=== PATIENT | male | born 1995 | race Caucasian/White ===

== ENCOUNTER 2022-03-03 12:59 | Emergency (ER) | payer BC, SELFPAY ==
--- NOTE | ~2022-03-03 | XR_ITS ---
EXAMINATION: XR chest 2V DATE: 03/03/2022 13:27 INDICATION: Chest pain. Cough. TECHNIQUE: Frontal and lateral views of the chest were obtained. COMPARISON: Chest 2 views 04/02/2018 FINDINGS: The chest demonstrates clear lungs without pneumonia, pleural effusion, or pneumothorax. Th e heart size is normal. IMPRESSION: 1. No acute cardiopulmonary disease. Reviewed, dictated and finalized at location E.
[2022-03-03 13:14] VITALS: BP 158/87; PULSE 107; RESP 16; TEMP 37.1; O2SAT 100
--- NOTE | 2022-03-03 13:39 | ED.GENADULT ---
HPI - General Adult General Chief complaint: Upper Respiratory Infection Stated complaint: chest/rib pain Source: patient Mode of arrival: ambulatory Limitations: no limitations History of Present Illness HPI narrative: Patient presents for evaluation of right-sided chest pain. She indicates she has chronic left sided back pain and chest pain for the last 5 years. She states the pain is there on a daily basis and is a dull pressure, rated 3 out of 10 in severity. Yesterday she was smoking some marijuana and noted some air bubbles under the skin on the right side of her chest wall after coughing. She had pain in the areas with air bubbles were. Pain was rated 6/10 in severity. Air bubbles are no longer visible. Pain has improved. She did some online research and was concerned about potential pneumothorax. She smokes about 0.5 ppd and marijuana daily. She is MTF transgender, currently on estrogen based HRT. No personal hx of DVT or PE. No leg swelling. Patient has some chronic SOB that has been present for the past five years. Currently symptoms are not worse than baseline. Related Data Home Medications Medication Instructions Recorded Confirmed cariprazine [Vraylar] mg 03/03/22 estradiol valerate mg IM 03/03/22 lisdexamfetamine [Vyvanse] mg 03/03/22 sertraline mg 03/03/22 spironolactone 03/03/22 Allergies Allergy/AdvReac Type Severity Reaction Status Date / Time clavulanic acid Allergy Mild Unknown Verified 04/02/18 09:35 amoxicillin Allergy Unknown rash Verified 12/06/17 21:20 Review of Systems Review of Systems: CONSTITUTIONAL: Denies fever, chills, or sweats. EYES: Denies visual changes, redness, or discharge. ENT: Denies rhinorrhea, congestion, sore throat, or otalgia. CARDIOVASCULAR: Denies chest pain, palpitations, or edema. RESPIRATORY:Reports chronic SOB, not worse from baseline. Reports occasional cough GASTROINTESTINAL: Denies abdominal pain, nausea, vomiting, or diarrhea. GENITOURINARY: Denies dysuria or hematuria. SKIN: Denies rash or itching. MUSCULOSKELETAL: Denies back pain, joint pain, or myalgia. NEUROLOGIC: Denies headache, numbness, dizziness, or weakness. PSYCHIATRIC: Reports chronic anxiety. Denies depression. [facility] Past Medical History Medical History (Updated 04/02/22 @ 14:09 by Christiano Ernst [facility], ) Anxiety Depression Surgical History Surgical History No pertinent past surgical history Family History Family History Mother No pertinent past medical history Social History Social History Smoking packs per day: 0.5 Smoking cigarettes per day: 10.0 Smoking status: Current every day smoker Substance use: current Substance use type: marijuana Living arrangements: with family Gender identity (if verbalized by the patient): Female Spiritual care concerns: No Exam Narrative: GENERAL: Well-appearing, well-nourished, and in no acute distress. HEAD: Normocephalic, atraumatic. EYES: PERRLA and EOMI. ENT: Nares clear, no rhinorrhea or epistaxis. Mucous membranes moist. Oropharynx without tonsillar hypertrophy exudate or other lesions. Bilateral TMs pearly caldera nonbulging NECK: Supple. No adenopathy or masses. No carotid bruits or JVD CHEST: Clear to auscultation. No respiratory distress. No wheezes rales or rhonchi HEART: Regular rate and rhythm. No murmur heard. Normal peripheral pulses. ABDOMEN: Soft, nontender, nondistended, normal active bowel sounds. EXTREMITIES: Normal range of motion. No edema. SKIN: Warm, dry, no rash. NEURO: No focal deficits. Alert and oriented x3. PSYCH: Normal mood and affect. Course Course Emergency Course: This is a 27-year-old who presented with complaints of right-sided chest discomfort and an appearance of air bubbles under the skin fol
--- NOTE | 2022-03-03 13:49 | ECG_ITS ---
Measurements Intervals [place] Rate: 74 P: 15 MT: 138 QRS: 94 QRSD: 109 T: 57 QT: 373 QTc: 415 Interpretive Statements SINUS RHYTHM INCOMPLETE RIGHT BUNDLE BRANCH BLOCK [90+ ms QRS DURATION, TERMINAL R IN V1/V2, 40+ ms S IN I/aVL/V4/V5/V6] BORDERLINE ECG NO PREVIOUS ECG AVAILABLE FOR COMPARISON Electronically Signed On 03-04-2022 16:10:37 CDT by lCint Valdes M.D.
== END 2022-03-03 14:13 | disposition home or self-care (01) ==
PROVIDERS: Emergency Provider Nurse Practitioner
DX: R07.81 Pleurodynia (principal); F41.9 Anxiety disorder, unspecified; I45.10 Unspecified right bundle-branch block; F17.210 Nicotine dependence, cigarettes, uncomplicated; F12.90 Cannabis use, unspecified, uncomplicated
CPT/HCPCS: 71046; 93005; 99203; G0463

== ENCOUNTER 2022-04-04 14:28 | Emergency (ER) | payer BC, SELFPAY ==
--- NOTE | 2022-04-04 14:41 | ECG_ITS ---
Measurements Intervals [place] Rate: 102 P: 49 MI: 130 QRS: 83 QRSD: 111 T: 49 QT: 342 QTc: 447 Interpretive Statements SINUS TACHYCARDIA INCOMPLETE RIGHT BUNDLE BRANCH BLOCK BORDERLINE ECG Electronically Signed On 04-04-2022 15:17:17 CDT by Tayo Young D.O.
[2022-04-04 14:50] VITALS: BP 123/49; PULSE 105; RESP 18; TEMP 36.5; O2SAT 98
--- NOTE | 2022-04-04 16:13 | ED.CHESTPAIN ---
HPI - Chest Pain General Chief Complaint: Chest Pain Stated Complaint: chest pain Time Seen by Provider: 04/04/22 16:08 History of Present Illness HPI narrative: 27-year-old male presents to the emergency room complaints of reproducible right anterior chest pain. Patient states that the pain has been present intermittently for the past 3 years. Patient states that moving around inspiration and palpation aggravate the pain. Patient states he is tried ibuprofen on 1 occasion and it did not help with the pain. Patient also states that he has been evaluated by an urgent care in the last month, and was told that this was not heart related. Related Data Home Medications Medication Instructions Recorded Confirmed cariprazine [Vraylar] mg 03/03/22 estradiol valerate mg IM 03/03/22 lisdexamfetamine [Vyvanse] mg 03/03/22 sertraline mg 03/03/22 spironolactone 03/03/22 Allergies Allergy/AdvReac Type Severity Reaction Status Date / Time clavulanic acid Allergy Mild Unknown Verified 04/04/22 16:27 amoxicillin Allergy Unknown rash Verified 04/04/22 16:27 Review of Systems Review of Systems: CONSTITUTIONAL: Denies fever, chills, or sweats. EYES: Denies visual changes, redness, or discharge. ENT: Denies rhinorrhea, congestion, sore throat, or otalgia. CARDIOVASCULAR: Reports chest pain RESPIRATORY: Denies cough or dyspnea. GASTROINTESTINAL: Denies abdominal pain, nausea, vomiting, or diarrhea. GENITOURINARY: Denies dysuria or hematuria. SKIN: Denies rash or itching. MUSCULOSKELETAL: Denies back pain, joint pain, or myalgia. NEUROLOGIC: Denies headache, numbness, dizziness, or weakness. PSYCHIATRIC: Denies anxiety or depression. [facility] Past Medical History Medical History Anxiety Depression Surgical History Surgical History No pertinent past surgical history Family History Family History Mother No pertinent past medical history Social History Social History Smoking packs per day: 0.5 Smoking cigarettes per day: 10.0 Smoking status: Current every day smoker Substance use: current Substance use type: marijuana Gender identity (if verbalized by the patient): Female Spiritual care concerns: No Exam Narrative: GENERAL: Well-appearing, well-nourished, and in no acute distress. HEAD: Normocephalic, atraumatic. EYES: PERRLA and EOMI.D CHEST: Clear to auscultation. No respiratory distress. No wheezes rales or rhonchi tenderness to the chest wall with palpation HEART: Regular rate and rhythm. No murmur heard. Normal peripheral pulses. ABDOMEN: Soft, nontender, nondistended, normal active bowel sounds. EXTREMITIES: Normal range of motion. No edema. SKIN: Warm, dry, no rash. NEURO: No focal deficits. Alert and oriented x3. PSYCH: Anxious. Course Vital Signs Vital signs: Vital Signs Temperature 36.5 C 04/04/22 14:50 Pulse Rate 105 H 04/04/22 14:50 Respiratory Rate 18 04/04/22 14:50 Blood Pressure 123/49 L 04/04/22 14:50 Pulse Oximetry 98 04/04/22 14:50 Temperature 36.5 C 04/04/22 14:50 Pulse Rate 77 04/04/22 16:33 Respiratory Rate 16 04/04/22 16:33 Blood Pressure 138/77 04/04/22 16:33 Pulse Oximetry 98 04/04/22 16:33 MDM - Chest Pain MDM Narrative Medical decision making narrative: 27-year-old biological male presented the emergency room for evaluation of intermittent chest pain that he has had for 3 years. Patient states pain was worse with palpation and respiration and movements. Evaluation was incomplete as patient elected to leave AMA, stating that all of his problems were in his head. CBC, CMP and troponin were all unremarkable. Patient refused chest x-ray. EKG was normal sinus with no ectopy. Medical Records Data Attestation: I review
[2022-04-04] MEDS: hydrOXYzine HCL 25 MG TABLET PO (16:32)
[2022-04-04 16:33] VITALS: BP 138/77; PULSE 77; RESP 16; O2SAT 98
[2022-04-04] MEDS: KETOROLAC (*BKC) 60 MG/2 ML VIAL IM (16:33)
[2022-04-04 16:35] LABS: Basophils Absolute Auto 0.1 K/mm3 (0.0-0.1); Basophils Percent Auto 0.9 % (0.2-1.2); Eosinophils Absolute Auto 0.5 K/mm3 (0-0.3); Hematocrit 42.9 % (42.0-52.0); Hemoglobin 14.9 g/dL (14.0-18.0); Immature Granulocyte Absolute 0.03 K/mm3 (0.00-0.031); Immature Granulocyte Percent A 0.3 % (0-0.5); Lymphocytes Absolute Auto 3.89 K/mm3 (0.9-3.2); Lymphocytes Percent Auto 33.2 % (18.3-44.2); Mean Corpuscular HGB Conc 34.7 g/dl (32-36); Mean Corpuscular Hemoglobin 31.6 pg (26-34); Mean Corpuscular Volume 90.9 fl (80-100); Mean Platelet Volume 10.8 fl (7.4-10.4); Monocytes Absolute Auto 1.2 K/mm3 (0.1-0.6); Monocytes Percent Auto 10.2 % (2.6-8.5); Neutrophils Percent Auto 51.4 % (45.5-73.1); Platelet Count Result 283 k/mm3 (150-375); Red Blood Count 4.72 M/mm3 (4.6-6.20); Red Cell Distribution Width 12.6 % (11.5-14.5); White Blood Count 11.7 K/mm3 (4.5-10.0)
[2022-04-04 16:45] LABS: Alanine Aminotransferase 23 U/L (4-50); Albumin Level 5.2 g/dL (3.5-5.1); Alkaline Phosphatase 64 U/L (38-126); Anion Gap 12 mmol/L (8-16); Aspartate Amino Transferase 42 U/L (17-59); Blood Urea Nitrogen 20 mg/dL (9-20); Calcium 9.6 mg/dL (8.4-10.2); Carbon Dioxide 24 mmol/L (22-30); Chloride 101 mmol/L (98-107); Estimated CRCL calculation 133 ml/min; Estimated Glomerular Filt Rate > 60; Glucose 86 mg/dL (65-110); Potassium 3.9 mmol/L (3.4-5.0); Sodium 137 mmol/L (137-145)
[2022-04-04 16:57] LABS: Troponin I < 0.012 ng/mL (0.000-0.034)
== END 2022-04-04 17:29 | disposition left against medical advice (07) ==
PROVIDERS: Emergency Provider Nurse Practitioner Family
DX: R07.89 Other chest pain (principal); Z76.5 Malingerer [conscious simulation]; F41.9 Anxiety disorder, unspecified; F32.A Depression, unspecified; F17.210 Nicotine dependence, cigarettes, uncomplicated; R00.0 Tachycardia, unspecified; I45.10 Unspecified right bundle-branch block
CPT/HCPCS: 36415; 80053; 84484; 85025; 93005; 96372; 99284; A9270; J1885

== ENCOUNTER 2024-10-30 14:24 | Emergency (ER) | payer OTHER, SELFPAY ==
--- NOTE | 2024-10-30 14:28 | ED.URI ---
HPI - URI/Sore Throat General Chief Complaint: Upper Respiratory Infection Stated Complaint: sore throat / body aches / congestion Time Seen by Provider: 10/30/24 14:28 Source: patient Mode of arrival: ambulatory Limitations: no limitations History of Present Illness HPI Narrative: Lorelei is a 29-year-old transgender patient presenting to the clinic today with complaints of sore throat, body aches, and congestion times 1 day. They report symptoms started yesterday. Denies any known fever. Was exposed to his sister who was sick yesterday at [facility]. MD elicited complaint: sore throat, nasal congestion and other (Body aches) Related Data Home Medications Medication Instructions Recorded Confirmed estradiol valerate 20 mg/mL 20 mg IM DIRECTED 03/03/22 10/30/24 intramuscular oil sertraline 100 mg tablet 100 mg DIRECTED 03/03/22 10/30/24 spironolactone 100 mg tablet 100 mg DIRECTED 03/03/22 10/30/24 progesterone micronized 100 mg 100 mg DIRECTED 10/30/24 10/30/24 capsule Allergies Allergy/AdvReac Type Severity Reaction Status Date / Time clavulanic acid Allergy Mild Unknown Verified 04/04/22 16:27 amoxicillin Allergy Unknown rash Verified 04/04/22 16:27 Review of Systems Review of Systems: Pertinent positives per HPI. Patient denies any fever, chills, rash, headache, visual changes, dizziness, cough, shortness of breath, chest pain, palpitations, nausea, vomiting, diarrhea, constipation, abdominal pain, or any urinary issues. PMFSH Past Medical History Medical History Anxiety Depression Surgical History Surgical History No pertinent past surgical history Family History Family History Mother No pertinent past medical history Social History Social History Smoking packs per day: 0.5 Smoking cigarettes per day: 10.0 Smoking status: Current every day smoker Substance use: current Substance use type: marijuana Living arrangements: with family Gender identity (if verbalized by the patient): Female Spiritual care concerns: No Comments At the time of my signature, I reviewed and agree with the nursing past medical, surgical, social, and family history. There is no relevant family history pertinent to the patient complaint. Exam Narrative: General: Well-developed, well nourished, in no apparent distress Head: Normocephalic, atraumatic Eyes: Pupils equally round and reactive to light bilaterally, EOM intact, sclera and conjunctive clear, no discharge, lids normal Ears: TMs intact and clear, ear canals clear, no drainage, grossly hearing normal. Nose: Nares patent, clear nasal discharge, no inflammation, no sinus tenderness. Mouth: Oral pharynx red without lesions or masses, good dentition, MMM. Neck: Supple, trachea midline, no enlargement of anterior or posterior cervical nodes, no thyroid masses or goiter palpable. Cardio: Regular rate and rhythm, s1 and s2 normal, no murmur appreciated. Resp: Clear to auscultation bilaterally, no rhonchi, rales, wheezing or rubs Course Course Emergency Course: Portions of this record may have been created with voice recognition software. Level of Care: Express Care Visit Vital Signs Vital signs: Vital Signs Temperature 36.2 C L 10/30/24 14:36 Pulse Rate 102 H 10/30/24 14:36 Respiratory Rate 18 10/30/24 14:36 Blood Pressure 117/74 10/30/24 14:36 Pulse Oximetry 99 10/30/24 14:36 Oxygen Delivery Room Air 10/30/24 14:36 Temperature 36.2 C L 10/30/24 14:36 Pulse Rate 102 H 10/30/24 14:36 Respiratory Rate 18 10/30/24 14:36 Blood Pressure 117/74 10/30/24 14:36 Pulse Oximetry 99 10/30/24 14:36 Oxygen Delivery Room Air 10/30/24 14:36 Vital signs reviewed MDM - URI/Sore Throat MDM Narrative Medical decision making narrative: At the time of visit patient is resting comfortably on the exam table. Patient appears to be nontoxic. Labs: COVID, influenza, and strep test was performed. All testing was negative. We will send strep for culture. Plan: I suspect patient has URI/viral pharyngitis. Supportive measures were discussed with the patient and they voiced understanding discharge instructions and agrees to treatment plan. Return precautions reviewed Differential Diagnosis Differential diagnosis: Likely upper respiratory infection, otitis media, sinusitis, viral infection, bronchitis, influenza, pharyngitis and other (COVID) Discharge Plan Discharge Clinical Impression: Upper respiratory infection Qualifiers: URI type: unspecified URI Qualified Code(s): J06.9 - Acute upper respiratory infection, unspecified Pharyngitis Qualifiers: Pharyngitis/tonsillitis etiology: unspecified etiology Qualified Code(s): J02.9 - Acute pharyngitis, unspecified Patient Disposition: Home, Self-Care Condition: Stable Instructions: Antibiotic Form, Pharyngitis (ED), Upper Respiratory Infection (ED) Additional Instructions: COVID, influenza, and strep test was negative in the clinic today. May take DayQuil/NyQuil for cold/flu symptoms Increase fluids and stay well hydrated Tylenol/motrin for pain/fever Flonase and OTC antihistamines as directed Vicks vapor rub to open sinuses Sinus rinses for congestion Cepacol spray, cough drops, throat lozenges, warm tea with honey/lemon, gargle salt water to soothe throat BRAT diet for diarrhea Clear liquids x 24 hours then advance as tolerated for nausea/vomiting Go to the ED if you develop a worsening in your condition- high fever not controlled by Tylenol or Motrin, dehydration, weakness, lethargy, shortness of breath, or chest pain. Follow up with your PCP in 3-5 days if symptoms persist. Prescriptions: No Action progesterone micronized 100 mg capsule 100 mg DIRECTED spironolactone 100 mg tablet 100 mg DIRECTED sertraline 100 mg tablet 100 mg DIRECTED estradiol valerate 20 mg/mL oil 20 mg IM DIRECTED Follow-up/Referrals: UNKNOWN,DOCTOR [Non-Staff] - Time of Disposition: 14:52 Quality NIHSS Nursing Documentation ED NIHSS nursing documentation: reviewed/agree
[2024-10-30 14:36] VITALS: BP 117/74; PULSE 102; RESP 18; TEMP 36.2; O2SAT 99
[2024-10-30 14:55] LABS: EDINFLUASCREEN Negative (Negative); EDINFLUBSCREEN Negative (Negative); EDSTREPNEGPOS1 Negative (Negative)
[2024-10-30 14:55] LABS: EDCOVIDSCREEN Negative (Negative)
== END 2024-10-30 15:02 | disposition home or self-care (01) ==
PROVIDERS: Emergency Provider Nurse Practitioner Family; PCP Family Medicine Sports Medicine
DX: J06.9 Acute upper respiratory infection, unspecified (principal); J02.9 Acute pharyngitis, unspecified; Z20.822 Contact with and (suspected) exposure to COVID-19
CPT/HCPCS: 87081; 87426; 87804; 87880; 99213; G0463

== ENCOUNTER 2025-06-17 13:54 | Outpatient (CLI) | payer SELFPAY ==
--- NOTE | ~2025-06-17 | CT_ITS ---
CT facial bones w con Ordering provider: Estefany Lambert History: . infection mandible contouring surgery . Comparison: None. Technique: Thin slice axial CT of the facial bones was performed without contrast. Coronal and sagit jane reformatted images were also obtained. . Automated exposure control and iterative reconstruction technique were employed. The dose-length product was 351.94 mGy-cm. 75 mL Omnipaque 350 was given IV . FINDINGS: PARANASAL SINUSES: Left maxillary sinus disease. Postoperative changes seen in the anterior wall of b oth maxillary sinuses. Postoperative changes seen in the anterior wall of the frontal sinuses with bi lateral frontal sinus disease. BONES: Bilateral nasal bone fracture. Fracture of the mid portion of the lower mandible. ORBITS AND SUPERFICIAL SOFT TISSUES: The optic globes and orbits are normal. Soft tissue density with fat stranding seen anterior to the lower mandible fracture which may be postoperative or due to infe ction. Follow-up and clinical evaluation advised. Otherwise, The superficial soft tissues are normal. VISUALIZED MASTOIDS: Well aerated. LIMITED VISUALIZED BRAIN PARENCHYMA: Normal. IMPRESSION: Postoperative changes in the anterior wall of the right and left maxillary sinuses, right and left fr ontal sinuses and in the lower mandible. Bilateral nasal bone fractures. Soft tissue density with fat stranding anterior to the fracture in the mid lower mandible which may b e infectious or postoperative. Clinical correlation and follow-up Reviewed, dictated and finalized at location A. IMPRESSION: Postoperative changes in the anterior wall of the right and left maxillary sinu ses, right and left frontal sinuses and in the lower mandible. Bilateral nasal bone fractures. Soft tissue density with fat stranding anterior to the fracture in the mid lowe r mandible which may be infectious or postoperative. Clinical correlation and f ollow-up
== END 2025-06-17 13:55 | disposition home or self-care (01) ==
PROVIDERS: PCP Family Medicine Sports Medicine
DX: Z48.810 Encounter for surgical aftercare following surgery on the sense organs (principal); S02.2XXA Fracture of nasal bones, initial encounter for closed fracture; X58.XXXA Exposure to other specified factors, initial encounter; J32.8 Other chronic sinusitis; M79.89 Other specified soft tissue disorders
CPT/HCPCS: 70487; Q9967